=== PATIENT | female | born 1985 | race Caucasian/White ===

== ENCOUNTER 2017-05-31 07:06 | Day surgery (SDC) | payer BC ==
[~2017-05-31] VITALS: Ht 160 cm; Wt 69.6 kg
[2017-05-31] MEDS ORDERED: FENTANYL PF 250 MCG/5ML ONE (08:11)
[2017-05-31] MEDS ORDERED: MIDAZOLAM 1 MG/ML, 2ML ONE ×2 (08:11→10:44)
[2017-05-31 08:15] VITALS: BP 119/82
[2017-05-31 08:15] LABS: HCG UR LOT HCG7030192
[2017-05-31] MEDS ORDERED: NEOSTIGMINE 1 MG/ML, 10ML ONE (08:15)
[2017-05-31] MEDS ORDERED: GLYCOPYRROLATE 0.2MG/1ML, 5ML ONE (08:15)
[2017-05-31] MEDS ORDERED: CEFAZOLIN 1,000 MG ONE (08:15)
[2017-05-31] MEDS ORDERED: DEXAMETHASONE 4 MG/ML, 1ML ONE (08:15)
[2017-05-31] MEDS ORDERED: ROCURONIUM 10 MG/ML ONE (08:15)
[2017-05-31] MEDS ORDERED: LIDOCAINE 4%, 4 ML SYR/CANN TP ONE (08:15)
[2017-05-31] MEDS ORDERED: PROPOFOL 10 MG/ML, 20ML ONE (08:15)
[2017-05-31] MEDS ORDERED: ONDANSETRON 2MG/ML, 2ML ONE ×2 (08:15→10:50)
[2017-05-31] MEDS ORDERED: SUCCINYLCHOLINE 20 MG/ML, 10ML ONE (08:15)
[2017-05-31 08:20] LABS: HCG UR OBC PASS
[2017-05-31] MEDS ORDERED: MULT-658 PO (08:26)
[2017-05-31] MEDS ORDERED: LIDOCAINE/PF 1%, 30ML ONE (08:30)
[2017-05-31] MEDS ORDERED: EPINEPHRINE 1 MG/ML, 1ML ONE (08:30)
[2017-05-31] MEDS ORDERED: FLUORESCEIN SODIUM 500 MG/5 ML ONE (08:30)
[2017-05-31] MEDS ORDERED: LIDOCAINE 1%, 2ML SQ PRN (09:00)
[2017-05-31] MEDS ORDERED: LACTATED RINGERS 1,000 ML IV SCH (09:00)
[2017-05-31] MEDS ORDERED: KETOROLAC 30 MG/1 ML ONE (09:03)
[2017-05-31] MEDS ORDERED: HYDROmorphone 1 MG/ML, 1ML ONE ×2 (09:03→10:54)
[2017-05-31] MEDS ORDERED: LIDOCAINE-MPF 2% ,5ML ONE (09:03)
[2017-05-31] MEDS ORDERED: LIDOCAINE 1%-EPI 1:100K, 30ML IM ONE (09:18)
[2017-05-31] MEDS ORDERED: PROPOFOL 50 ML ONE (09:18)
[2017-05-31] MEDS ORDERED: ONDANSETRON 2MG/ML, 2ML IVPush PRN (09:30)
[2017-05-31] MEDS ORDERED: HYDROcodone/APAP 7.5-325MG/15ML UDC PO PRN (09:30)
[2017-05-31] MEDS ORDERED: ACETAMINOPHEN 325 MG TABLET PO PRN (09:30)
[2017-05-31] MEDS ORDERED: FENTANYL PF 100 MCG/2ML IV PRN (09:30)
[2017-05-31] MEDS ORDERED: OXYcodone 5 MG/5 ML ORAL.SOL UDC PO PRN (09:30)
[2017-05-31] MEDS ORDERED: PROMETHAZINE 25 MG/ML, 1ML IV PRN (09:30)
[2017-05-31] MEDS ORDERED: MIDAZOLAM 1 MG/ML, 2ML IV PRN (09:30)
[2017-05-31] MEDS ORDERED: FENTANYL PF 100 MCG/2ML ONE (10:37)
[2017-05-31] MEDS: HYDROmorphone 1 MG/ML, 1ML IV PRN ×3 (10:55→11:25)
[2017-05-31] MEDS ORDERED: DIPHENHYDRAMINE 50 MG/ML, 1ML ONE (11:12)
[2017-05-31] MEDS ORDERED: DIPHENHYDRAMINE 50 MG/ML, 1ML IVPush ONE (11:30)
[2017-05-31] MEDS ORDERED: OXYcodone/APAP 7.5/325MG TABLET ONE (13:08)
[2017-05-31] MEDS ORDERED: OXYcodone/APAP 7.5/325MG TABLET PO PRN (13:30)
== END 2017-05-31 14:10 ==
LOC: OUT 07:06
PROVIDERS: ATTEND Obstetrics & Gynecology Gynecology
DX: K66.0 Peritoneal adhesions (postprocedural) (postinfection) (principal); N73.6 Female pelvic peritoneal adhesions (postinfective); Z88.0 Allergy status to penicillin; Z88.8 Allergy status to other drugs, medicaments and biological substances
CPT/HCPCS: 58660; 81025; J0171; J0330; J0690; J1100; J1170; J1200; J1885; J2250; J2405; J2704; J2710; J3010; J3490; J7120